=== PATIENT | female | born 1950 | race Two or more races ===

== ENCOUNTER 2021-10-05 16:11 | Emergency (ER) | payer OTHER ==
[~2021-10-05] VITALS: Ht 162.6 cm; Wt 71.7 kg
[2021-10-05] MEDS ORDERED: PROZAC40 MG (16:20)
[2021-10-05] MEDS ORDERED: LIPITOR20 MG (16:20)
[2021-10-05] MEDS ORDERED: PREDNISONE 5MG (16:20)
[2021-10-05] MEDS ORDERED: XANAX XR0.5 MG (16:21)
== END 2021-10-05 18:59 | disposition home or self-care (01) ==
LOC: ER 16:11
DX: M51.16 Intervertebral disc disorders with radiculopathy, lumbar region (principal); M41.35 Thoracogenic scoliosis, thoracolumbar region; M43.16 Spondylolisthesis, lumbar region